=== PATIENT | male | born 1965 | race Caucasian/White ===

== ENCOUNTER 2020-07-22 07:48 | Outpatient (CLI) | payer OTHER, SELFPAY | END 2020-07-22 07:49 | disposition home or self-care (01) | LOC: ANHAUDIO 07:51 | PROVIDERS: PCP Family Medicine | DX: R42 Dizziness and giddiness (principal); H90.3 Sensorineural hearing loss, bilateral | CPT/HCPCS: 92537; 92540; 92546; 92557; 92567 ==